=== PATIENT | female | born 1980 | race African-American/Black ===

== ENCOUNTER 2022-04-13 06:18 | Observation (INO) ==
[2022-04-13 07:11] LABS: Basophils # 0.1 10*3/uL (0.0-0.2); Basophils % 1.3 % (0.0-0.8); Eosinophils # 0.2 10*3/uL (0.0-0.87); Eosinophils % 3.6 % (0.00-10.9); Immature Granulocytes % 0.6 %; Immature Granulocytes Absolute 0.03 #; Lymphocytes # 1.4 10*3/uL (1.4-4.0); Lymphocytes % 28.7 % (21.3-54.2); Mean Corpuscular HGB Conc 25.5 GM/DL (32-36); Mean Corpuscular Volume 75.3 FL (87-102); Mean Platelet Volume 9.7 FL (9.6-12.0); Monocytes # 0.6 10*3/uL (0.11-0.8); Neutrophils % 52.8 % (38.7-73.9); Platelet Count 292 T/CUMM (130-400); Red Blood Count 2.19 MC/CUMM (3.8-5.5); White Blood Count 4.8 T/CUMM (4-12)
[2022-04-13 07:17] LABS: Hematocrit 16.5 VOL% (35.7-47.0); Hemoglobin 4.2 GM/DL (12.0-16.0)
[2022-04-13 07:20] LABS: PT Patient Result 10.9 SECS (10.1-12.1)
[2022-04-13 07:27] LABS: Calcium 9.6 MG/DL (8.5-10.1); Osmolality,Calculated 278.3 MOS/KG (273-304); Potassium 3.9 MMOL/L (3.5-5.1)
[2022-04-13] MEDS ORDERED: SODIUM CHLORIDE 0.9% 1,000 ML IV PRN (07:30)
[2022-04-13] MEDS ORDERED: DIAZEPAM 5 MG TABLET PO ONE (08:00)
[2022-04-13] MEDS ORDERED: fentaNYL 100 MCG/2 ML VIAL IV ONE (09:00)
[2022-04-13] MEDS ORDERED: MIDAZOLAM 2 MG/2 ML VIAL IV ONE (09:00)
[2022-04-13] MEDS ORDERED: METOCLOPRAMIDE 10 MG TABLET PO ONE (09:30)
[2022-04-13] MEDS ORDERED: ONDANSETRON 4 MG/2 ML VIAL IV PRN (09:30)
[2022-04-13] MEDS ORDERED: SCOPOLAMINE 1.5 MG PATCH TRANSDERM ONE (09:30)
[2022-04-13] MEDS ORDERED: DEXAMETHASONE INJ 10 MG in SODIUM CHLORIDE 0.9% 50 ML IV ONE (09:32)
[2022-04-13] MEDS ORDERED: HEPARIN/NACL 0.9% 2 UNITS/ML 2,000 UNIT/1,000 ML BAG IV ONE (09:43)
[2022-04-13] MEDS ORDERED: HEPARIN/NACL 0.9% 2 UNITS/ML 4,000 UNIT/2,000 ML BAG IV ONE (09:58)
[2022-04-13] MEDS ORDERED: DEXAMETHASONE 10 MG/1 ML VIAL IV ONE (10:00)
[2022-04-13] MEDS: NAPROXEN 250 MG TABLET PO SCH ×2 (13:01→21:25)
[2022-04-13] MEDS ORDERED: diphenhydrAMINE 50 MG/1 ML VIAL ONE (14:55)
[2022-04-13] MEDS ORDERED: ACETAMINOPHEN INJ 1,000 MG/100 ML VIAL IV ONE ×2 (14:58→15:02)
[2022-04-13] MEDS ORDERED: METHOCARBAMOL INJ 1,000 MG in SODIUM CHLORIDE 0.9% 100 ML IV ONE (15:00)
[2022-04-13] MEDS ORDERED: KETOROLAC 30 MG/1 ML VIAL ONE (15:01)
[2022-04-13] MEDS ORDERED: METHOCARBAMOL 1,000 MG/10 ML VIAL ONE (15:01)
[2022-04-13] MEDS ORDERED: PROMETHAZINE INJ 25 MG in SODIUM CHLORIDE 0.9% 50 ML IV ONE (15:03)
[2022-04-13] MEDS ORDERED: KETOROLAC 15 MG/1 ML VIAL IV ONE ×2 (15:21→16:03)
[2022-04-13] MEDS ORDERED: MIDAZOLAM 2 MG/2 ML VIAL ONE (15:30)
[2022-04-13] MEDS ORDERED: diphenhydrAMINE 50 MG/1 ML VIAL IV ONE (15:43)
[2022-04-13] MEDS ORDERED: ALBUTEROL 2.5 MG/3 ML NEB RESP TX PRN (16:10)
[2022-04-13] MEDS ORDERED: hydrALAZINE 20 MG/1 ML VIAL IV PRN (16:11)
[2022-04-13] MEDS: LACTATED RINGERS 1,000 ML IV SCH (17:16)
[2022-04-13] MEDS: SODIUM CHLORIDE 0.9% 1,000 ML IV SCH (17:17)
[2022-04-13] MEDS: HYDROmorphone 1 MG/1 ML SYRINGE IV PRN ×4 (17:31→23:59)
[2022-04-13 17:44] LABS: Hemoglobin 6.5 GM/DL (12.0-16.0)
[2022-04-13 18:32] LABS: Urine Appearance Cloudy (Clear); Urine Color Yellow (Yellow); Urine pH 6.5 (4.5-8.0)
[2022-04-13 18:33] LABS: Bilirubin,Urine Negative (Negative); Blood, Urine Trace mg/dL (Negative); Glucose,Urine (UA) Negative (Negative); Ketones,Urine Negative (Negative); Nitrite,Urine Negative (Negative); Protein,Urine 30 mg/dL (Negative); Urine Specific Gravity 1.025 (1.001-1.035); Urine Urobilinogen 0.2 eU/dL (<2.0)
[2022-04-13 18:39] LABS: RBC,Urine <1 /HPF (0-4); Squamous Epithelial Cell,Urine Many /HPF (0-10)
[2022-04-13 18:40] LABS: Mucus,Urine Occasional /LPF (Occasional)
[2022-04-13 18:42] LABS: % Iron Saturation 1.4 % (18-50); Ferritin 2.2 ng/mL (8-252)
[2022-04-13] MEDS ORDERED: FERRIC GLUCONATE COMPLEX 125 MG in SODIUM CHLORIDE 0.9% 100 ML IV ONE (21:00)
[2022-04-13] MEDS: DOCUSATE SODIUM 100 MG CAPSULE PO SCH (21:26)
[2022-04-14] MEDS ORDERED: SODIUM CHLORIDE 0.9% 1,000 ML IV PRN (01:14)
[2022-04-14] MEDS: HYDROmorphone 1 MG/1 ML SYRINGE IV PRN (03:03)
[2022-04-14 08:53] LABS: Basophils % 0.2 % (0.0-0.8); Hematocrit 24.7 VOL% (35.7-47.0); Hemoglobin 7.1 GM/DL (12.0-16.0); Immature Granulocytes % 0.4 %; Immature Granulocytes Absolute 0.05 #; Lymphocytes % 8.2 % (21.3-54.2); Mean Corpuscular HGB Conc 28.7 GM/DL (32-36); Mean Corpuscular Volume 80.2 FL (87-102); Mean Platelet Volume 9.4 FL (9.6-12.0); Monocytes # 1.1 10*3/uL (0.11-0.8); Monocytes % 9.2 % (1.7-12.7); NRBC # 0.07 10*3/uL; Platelet Count 255 T/CUMM (130-400); Red Blood Count 3.08 MC/CUMM (3.8-5.5); Red Cell Distribution Width 20.4 % (9.3-17.3); White Blood Count 11.7 T/CUMM (4-12)
[2022-04-14] MEDS ORDERED: FERROUS SULFATE 325 MG TABLET PO SCH (09:00)
[2022-04-14 09:08] LABS: Calcium 9.6 MG/DL (8.5-10.1); Osmolality,Calculated 276.4 MOS/KG (273-304)
[2022-04-14] MEDS: NAPROXEN 250 MG TABLET PO SCH (09:09)
[2022-04-14] MEDS: DOCUSATE SODIUM 100 MG CAPSULE PO SCH (09:09)
[2022-04-14] MEDS: SODIUM CHLORIDE 0.9% 1,000 ML IV SCH (11:18)
[2022-04-14 13:31] VITALS: BP 120/64
== END 2022-04-14 14:31 | disposition home or self-care (01) ==
LOC: N.SDSINP 06:18 → N.2E 06:18 → N.SDSINP 06:21 → N.2E 16:49
PROVIDERS: ADMIT Radiology Diagnostic Radiology; ATTEND Radiology Diagnostic Radiology